=== PATIENT | female | born 1995 | race African-American/Black ===

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

== ENCOUNTER 2018-06-12 16:18 | Emergency (ER) | payer MEDICAID, OTHER ==
[~2018-06-12] VITALS: Ht 165.1 cm; Wt 62.0 kg
[2018-06-12 16:35] VITALS: BP 124/78
[2018-06-12] MEDS ORDERED: FAMOTIDINE 20MG TABLET PO ONE (17:00)
[2018-06-12] MEDS ORDERED: DIPHENHYDRAMINE 50MG/ML VIAL IM ONE (17:00)
[2018-06-12] MEDS ORDERED: METHYLPREDNISOLONE SOD SUCC 125 MG/2 ML VIAL IM ONE (17:00)
== END 2018-06-12 18:27 | disposition home or self-care (01) ==
LOC: ER 16:23
DX: L50.9 Urticaria, unspecified (principal)
CPT/HCPCS: 96372; 99283; J1200; J2930

== ENCOUNTER 2018-06-16 22:40 | Emergency (ER) | payer MEDICAID ==
[~2018-06-16] VITALS: Ht 165.1 cm; Wt 63.0 kg
[2018-06-17] MEDS ORDERED: DIPHENHYDRAMINE 50MG/ML VIAL IM STA (04:28)
[2018-06-17] MEDS ORDERED: CETIRIZINE 10MG TABLET PO SCH (04:30)
[2018-06-17] MEDS ORDERED: FAMOTIDINE 20MG TABLET PO ONE (04:30)
[2018-06-17 05:29] VITALS: BP 116/60
== END 2018-06-17 05:35 | disposition home or self-care (01) ==
LOC: ER 22:40
DX: L50.9 Urticaria, unspecified (principal)
CPT/HCPCS: 96372; 99283; J1200

== ENCOUNTER 2020-01-24 06:44 | Emergency (ER) | payer MEDICAID ==
[~2020-01-24] VITALS: Ht 165.1 cm; Wt 64.0 kg
[2020-01-24 06:46] VITALS: BP 112/66
== END 2020-01-24 08:31 | disposition home or self-care (01) ==
LOC: ER 06:44
DX: H10.30 Unspecified acute conjunctivitis, unspecified eye (principal)
CPT/HCPCS: 99281; 99283